=== PATIENT | female | born 1950 | race Caucasian/White ===

== ENCOUNTER → 2021-12-22 01:14 | Outpatient (CLI) | payer MEDICARE, MEDICAID, SELFPAY ==
--- NOTE | 2021-12-22 08:15 | DI.NM_ITS ---
Exam(s) NM BONE SCAN WHOLE BODY GRP EXAM: NM BONE SCAN WHOLE BODY GRP CLINICAL HISTORY: BREAST CANCER C50.911 METS TO BONE C50.919 C79.51 RESTAGING. TECHNIQUE: Injected Dose: 24.0 mCi Tc-99m MDP Delayed Images: 2-3 hours. COMPARISON: CT CT CHEST/ABD/PEL WO from 12/22/2021 FINDINGS: Today's CT scan was reviewed. There are multiple foci of increased uptake seen in the anterior aspect of multiple contiguous left r ibs including the anterior aspects of the left 2nd, 3rd, 4th, 5th, and 6th ribs. This arrangement of findings is usually consistent with trauma. There are no acute rib fractures evident on the CT scan . However, there is subtle focal sclerosis evident in these ribs at these levels on the CT scan. I suspect that this is consistent with healing fracture sites, more so than sclerotic metastatic diseas e (which would be quite unlikely with this type of arrangement/location of findings). There is no abnormal uptake seen in the opposite-right rib cage nor in the spinal column and there is no abnormal focal uptake seen in the skull. No abnormal uptake seen in the pelvis, hips, and long b ones with the exception of a small focus of increased uptake in the medial compartment of the right k nee consistent with degenerative change. IMPRESSION: 1. There are multiple foci of increased uptake seen in the anterior aspects of the left 2nd through 6 th ribs, inclusive, most probably posttraumatic and consistent with subacute healing fractures at the se levels. See discussion above concerning correlation with CT findings. DATA REPOSITORY:
--- NOTE | 2021-12-22 08:25 | DI.CT_ITS ---
Exam(s) CT CHEST/ABD/PEL WO EXAM: CT CHEST/ABD/PEL WO CLINICAL HISTORY: METASTATIC BREAST CA,C50.911,EVAL METS,RESTAGING EXAM. TECHNIQUE: Imaging Protocol: Axial computed tomography images with coronal and sagittal reformatted images were created and reviewed CONTRAST MATERIAL: Intravenous: none. Contingency protocol Oral: None COMPARISON: No exams were available for comparison FINDINGS: CHEST: Density in the medial aspect left breast noted within adjacent hyperdensity which is probably a biopsy marker clip. Also abnormal findings in the deep right breast surgical clips at this level n oted and spiculated density. Surgical clips are noted in the right axilla. No adenopathy in the axilla evident. Also no adenopat hy in the opposite-left axilla. LUNGS: There is a noncalcified 6 millimeter nodule in the lateral basal segment of the right lower lo be. There is also a tiny 2 millimeter noncalcified nodule in the right upper lobe. There are no oth er focal pulmonary findings and there are no pleural effusions. No significant focal findings in the trachea and mainstem bronchi.. MEDIASTINUM: No obvious hilar nor mediastinal adenopathy. Visualized thyroid unremarkable. CARDIAC: Heart size is normal. There is no pericardial effusion.No coronary artery calcification. D iameter of the ascending thoracic aorta is 3.8 cm. OSSEOUS: No lytic nor blastic osseous lesions identified. No fractures.. ABDOMEN: There is no ascites. There are no mesenteric masses. LIVER: There are no obvious focal hepatic lesions evident of this noninfused study. GALLBLADDER/BILIARY: No obvious gallbladder pathology. CBD is not dilated. PANCREAS: No evidence of obvious pancreatic mass nor dilatation of the pancreatic duct. SPLEEN: Spleen is not enlarged. No obvious intrasplenic lesions. ADRENALS: There are no significant adrenal masses. KIDNEYS: No calculi nor hydronephrosis. No obvious solid renal masses. No cysts evident. ABDOMINAL AORTA: Abdominal aorta is not enlarged. LYMPH NODES: There is no para-aortic adenopathy. There is no adenopathy around the aortic bifurcatio n nor along the iliac chains and there is no inguinal adenopathy. ABDOMINAL WALL/GI: No evidence of significant anterior abdominal wall nor inguinal hernia. No evidence of bowel obstruction. PELVIS: LYMPH NODES: There is no intrapelvic nor inguinal adenopathy. GI: No evidence of appendicitis.No evidence of significant sigmoid diverticular disease. URINARY BLADDER: No calculi nor obvious masses evident REPRODUCTIVE: Uterus is surgically absent. There is a well-defined slightly lobulated fluid collection above the vaginal cuff and behind the uri nary bladder which measures 3.4 cm AP by 2 cm wide by 1.7 cm craniocaudal. This does not contain gas bubbles nor surrounding fat streaking. It does not have the appearance of a bladder diverticulum. There is no free layering fluid in the pelvis. OSSEOUS: No significant osseous lesions. IMPRESSION: 1. There is a 6 millimeter noncalcified nodule in the right lower lobe and a 2 millimeter noncalcifie d nodule in the right upper lobe. No other lung nodules, infiltrates, pleural effusions, nor intrath oracic adenopathy evident. Close follow-up these findings is recommended, given the history here. A lso comparison to any prior outside CT scans would be helpful, if they exist. 2. The uterus is surgically absent. No obvious ovaries identified. However, there is a well-defined uniform fluid density collection above the vaginal cuff and behind the urinary bladder, measuring 34 x 20 x 17 millimeters. This does not contain gas nor surrounding streaking. Correlation with time since hysterectomy recommended. This will also require follow-up. 3. There is no obvious pathologic appearing adenopathy in the chest, abdomen, and pelvis and there ar e no lytic or sclerotic bone lesions identified. RADIATION DOSE DELIVERED: 1,205.81mGy.cm Total DLP DATA REPOSITORY: All CT scans at this facility are submitted to the National Radiology Data Registry (NRDR) Dose Index Registry (DIR) with the [employer] ([employer]). RADIATION OPTIMIZATION: All CT scans at this facility use at least one of these dose optimization te chniques: automated exposure control; mA and/or kV adjustment per patient size (includes targeted exa ms where dose is matched to clinical indication); or iterative reconstruction.
[2021-12-22 08:51] LABS: Abs Immature Grans 0.02 10^3/uL (0.0-0.06); Absolute Basophil Count 0.07 10^3/uL (0.0-0.2); Absolute Eosinophil Count 0.21 10^3/uL (0.0-0.7); Absolute Lymphocyte Count 1.38 10^3/uL (1.2-3.4); Absolute Monocyte Count 0.56 10^3/uL (0.1-0.8); Absolute Neutrophil Count 2.16 10^3/uL (1.2-6.7); Basophils % 1.6; Eosinophils % 4.8; HCT 36.5 % (36.0-46.0); HGB 12.8 g/dL (11.2-15.7); Immature Grans % 0.5; Lymphocytes % 31.4; MCH 34.6 pg (27.0-33.0); MCHC 35.1 % (32.0-36.0); MCV 99 fL (80-95); MPV 11.7 fL (8.0-11.0); Monocytes % 12.7; Platelet Count 171 10^3/uL (130-400); RDW 11.4 % (11.7-14.6); RDW-SD 41.3 fL
[2021-12-22 09:34] LABS: ALT 31 U/L (14-59); AST 27 U/L (15-37); Alkaline Phosphatase 131 U/L (46-116); Anion Gap 7.4 mmol/L (3-11); BUN 5 mg/dL (7-18); Bilirubin, Total 0.6 mg/dL (0.2-1.0); CO2 29.6 mmol/L (21.0-32.0); CREATININE 0.8 mg/dL (0.55-1.02); Calcium 9.4 mg/dL (8.5-10.1); Chloride 98 mmol/L (98-107); Glucose 127 mg/dL (74-106); Potassium 3.8 mmol/L (3.5-5.1); Sodium 135 mmol/L (136-145); Total Protein 7.1 g/dL (6.4-8.2)
== END ==
PROVIDERS: Nurse Practitioner Adult Health; Visit Provider Internal Medicine
DX: C50.911 Malignant neoplasm of unspecified site of right female breast (principal); Z79.811 Long term (current) use of aromatase inhibitors; C79.51 Secondary malignant neoplasm of bone; R74.8 Abnormal levels of other serum enzymes; R91.8 Other nonspecific abnormal finding of lung field; Z90.710 Acquired absence of both cervix and uterus
CPT/HCPCS: 71250; 78306; 80053; 74176; 85025

== ENCOUNTER 2023-05-28 11:58 | Outpatient (CLI) | payer MEDICARE, MEDICAID, SELFPAY ==
--- NOTE | 2023-05-28 12:00 | RT.EKG_ITS ---
APPROVED REPORT Exam: Resting ECG Reason for Exam: High risk medication use/ breast cancer Patient Location: O HR:57 bpm ECG Measurements Heart Rate 57 AXIS ME 195 P 69 QRSd 100 QRS 73 QT 491 T 52 QTc 478 Conclusion Sinus rhythm...normal P axis, V-rate 50- [address] elevation, inferior leads...ST >0.06mV, II III aVF
== END 2023-05-28 11:59 | disposition home or self-care (01) ==
PROVIDERS: Visit Provider Nurse Practitioner
DX: Z79.899 Other long term (current) drug therapy (principal)
CPT/HCPCS: 93005; 93010

== ENCOUNTER 2023-05-28 17:41 | Outpatient (CLI) | payer MEDICARE, MEDICAID, SELFPAY ==
[2023-05-28 12:40] LABS: Absolute Lymphocyte Count 1.38 10^3/uL (1.2-3.4); HCT 36.6 % (36.0-46.0); MCH 35.2 pg (27.0-33.0); MCHC 35.5 % (32.0-36.0); MCV 99 fL (80-95); Platelet Count 173 10^3/uL (130-400); RBC 3.69 10^6/uL (3.93-5.22); RDW 11.4 % (11.7-14.6); RDW-SD 41.1 fL; WBC 3.06 10^3/uL (4.4-10.8)
[2023-05-28 13:00] LABS: ALT 27 U/L (14-59); AST 19 U/L (15-37); Albumin 3.8 g/dL (3.4-5.0); Alkaline Phosphatase 116 U/L (46-116); Anion Gap 5.6 mmol/L (3-11); BUN 6 mg/dL (7-18); Bilirubin, Total 0.5 mg/dL (0.2-1.0); CO2 29.4 mmol/L (21.0-32.0); CREATININE 0.8 mg/dL (0.55-1.02); Calcium 9.8 mg/dL (8.5-10.1); Chloride 94 mmol/L (98-107); Estimated GFR 78.72 (mL/min/1.73m2); Glucose 109 mg/dL (74-106); Potassium 3.9 mmol/L (3.5-5.1); Sodium 129 mmol/L (136-145)
[2023-05-28 13:29] LABS: Absolute Basophil Count 0.06 10^3/uL (0.0-0.2); Absolute Monocyte Count 0.06 10^3/uL (0.1-0.8); Absolute Neutrophil Count 1.56 10^3/uL (1.2-6.7); Diff Comment Manual Differential; RBC Morphology Normal
[2023-05-30 11:12] LABS: Cancer Ag 15-3 14 U/mL (<30)
== END 2023-05-28 17:42 | disposition home or self-care (01) ==
LOC: LBO 17:42
PROVIDERS: Visit Provider Internal Medicine
DX: C50.911 Malignant neoplasm of unspecified site of right female breast (principal); C78.01 Secondary malignant neoplasm of right lung; Z79.811 Long term (current) use of aromatase inhibitors
CPT/HCPCS: 36415; 80053; 86304; 85025; 86300; 93005

== ENCOUNTER 2023-06-11 02:50 | Outpatient (CLI) | payer MEDICARE, MEDICAID, SELFPAY ==
[2023-06-11 13:42] LABS: Abs Immature Grans 0.01 10^3/uL (0.0-0.06); Absolute Basophil Count 0.03 10^3/uL (0.0-0.2); Absolute Eosinophil Count 0.01 10^3/uL (0.0-0.7); Absolute Lymphocyte Count 1.17 10^3/uL (1.2-3.4); Absolute Monocyte Count 0.64 10^3/uL (0.1-0.8); Absolute Neutrophil Count 0.85 10^3/uL (1.2-6.7); Basophils % 1.1; Eosinophils % 0.4; HCT 35.2 % (36.0-46.0); HGB 12.5 g/dL (11.2-15.7); Immature Grans % 0.4; Lymphocytes % 43.2; MCH 36.3 pg (27.0-33.0); MCHC 35.5 % (32.0-36.0); MCV 102 fL (80-95); Monocytes % 23.6; Neutrophils % 31.3; RBC 3.44 10^6/uL (3.93-5.22); RDW 13.3 % (11.7-14.6); WBC 2.71 10^3/uL (4.4-10.8)
[2023-06-11 14:00] LABS: ALT 25 U/L (14-59); AST 22 U/L (15-37); Albumin 4.1 g/dL (3.4-5.0); Alkaline Phosphatase 128 U/L (46-116); Anion Gap 12.8 mmol/L (3-11); BUN 5 mg/dL (7-18); Bilirubin, Total 0.3 mg/dL (0.2-1.0); CO2 26.2 mmol/L (21.0-32.0); CREATININE 0.7 mg/dL (0.55-1.02); Calcium 9.8 mg/dL (8.5-10.1); Chloride 95 mmol/L (98-107); Estimated GFR 92.41 (mL/min/1.73m2); Glucose 112 mg/dL (74-106); Potassium 3.4 mmol/L (3.5-5.1); Sodium 134 mmol/L (136-145); Total Protein 7.3 g/dL (6.4-8.2)
[2023-06-11 14:07] LABS: Diff Comment Agrees w/ Instrument; RBC Morphology Normal
[2023-06-14 10:53] LABS: Cancer Ag 15-3 17 U/mL (<30)
== END 2023-06-11 02:51 | disposition home or self-care (01) ==
LOC: LBO 02:50
PROVIDERS: Visit Provider Internal Medicine
DX: C50.911 Malignant neoplasm of unspecified site of right female breast (principal); C78.01 Secondary malignant neoplasm of right lung
CPT/HCPCS: 80053; 86304; 85025; 86300

== ENCOUNTER 2023-06-11 13:44 | Outpatient (CLI) | payer MEDICARE, MEDICAID, SELFPAY ==
--- NOTE | 2023-06-11 13:45 | RT.EKG_ITS ---
APPROVED REPORT Exam: Resting ECG Reason for Exam: HIGH RISK MEDICATION Patient Location: O HR:80 bpm ECG Measurements Heart Rate 80 AXIS AR 154 P 59 QRSd 96 QRS 62 QT 413 T 8 QTc 477 Conclusion Sinus rhythm...normal P axis, V-rate 50- 99 Baseline wander in lead(s) V6 Normal Electrocardiogram
== END 2023-06-11 13:45 | disposition home or self-care (01) ==
LOC: CARDOPNVT 13:44
PROVIDERS: Visit Provider Nurse Practitioner
DX: Z79.899 Other long term (current) drug therapy (principal)
CPT/HCPCS: 80053; 86304; 85025; 86300; 93005; 93010

== ENCOUNTER → 2023-12-12 13:37 | Outpatient (BNVA) | payer MEDICARE, MEDICAID, SELFPAY | PROVIDERS: Referring Provider Internal Medicine; Visit Provider Psychiatry & Neurology Neurology | DX: G45.9 Transient cerebral ischemic attack, unspecified (principal); G62.9 Polyneuropathy, unspecified; E53.8 Deficiency of other specified B group vitamins | CPT/HCPCS: 99215 ==

== ENCOUNTER 2024-02-18 12:04 | Outpatient (RCR) | payer MEDICARE, MEDICAID, SELFPAY ==
[2024-02-18 12:39] LABS: Abs Immature Grans 0.01 10^3/uL (0.0-0.06); Absolute Basophil Count 0.06 10^3/uL (0.0-0.2); Absolute Eosinophil Count 0.08 10^3/uL (0.0-0.7); Absolute Lymphocyte Count 1.28 10^3/uL (1.2-3.4); Absolute Monocyte Count 0.42 10^3/uL (0.1-0.8); Absolute Neutrophil Count 1.18 10^3/uL (1.2-6.7); Eosinophils % 2.6 %; HCT 35.4 % (36.0-46.0); Immature Grans % 0.3 %; Lymphocytes % 42.2 %; MCH 36.8 pg (27.0-33.0); MCHC 33.9 % (32.0-36.0); MCV 109 fL (80-95); MPV 11.1 fL (8.0-11.0); Monocytes % 13.9 %; Platelet Count 141 10^3/uL (130-400); RBC 3.26 10^6/uL (3.93-5.22); RDW 12.6 % (11.7-14.6); RDW-SD 50.5 fL; WBC 3.03 10^3/uL (4.4-10.8)
[2024-02-18] MEDS: Normal Saline Flush 10 ML SYR IVP (12:43)
[2024-02-18 12:57] LABS: ALT 33 U/L (14-59); AST 24 U/L (15-37); Albumin 3.6 g/dL (3.4-5.0); Alkaline Phosphatase 122 U/L (46-116); Anion Gap 7.6 mmol/L (3-11); BUN 11 mg/dL (7-18); Bilirubin, Total 0.33 mg/dL (0.2-1.0); CO2 29.4 mmol/L (21.0-32.0); CREATININE 0.5 mg/dL (0.55-1.02); Calcium 9.6 mg/dL (8.5-10.1); Chloride 106 mmol/L (98-107); Estimated GFR 99.59 (mL/min/1.73m2); Glucose 85 mg/dL (74-106); Potassium 4.1 mmol/L (3.5-5.1); Sodium 143 mmol/L (136-145); Total Protein 6.7 g/dL (6.4-8.2)
[2024-02-18 13:14] LABS: Diff Comment Diff Reviewed; RBC Morphology Normal
[2024-02-20 13:15] LABS: Cancer Ag 15-3 20 U/mL (<30)
== END 2024-03-11 23:59 | disposition home or self-care (01) ==
LOC: INF 12:04
PROVIDERS: Nurse Practitioner; Visit Provider Internal Medicine
DX: C78.00 Secondary malignant neoplasm of unspecified lung; Z45.2 Encounter for adjustment and management of vascular access device
CPT/HCPCS: 36591; 80053; 86300; 85025

== ENCOUNTER → 2024-02-27 09:43 | Outpatient (BNVA) | payer MEDICARE, MEDICAID, SELFPAY | PROVIDERS: PCP Family Medicine; Referring Provider Family Medicine; Visit Provider Psychiatry & Neurology Neurology | DX: E53.8 Deficiency of other specified B group vitamins (principal); G45.9 Transient cerebral ischemic attack, unspecified; G62.9 Polyneuropathy, unspecified | CPT/HCPCS: 99214 ==

== ENCOUNTER 2024-03-27 00:25 | Outpatient (CLI) | payer MEDICARE, MEDICAID, SELFPAY ==
--- NOTE | 2024-03-27 | DI.US_ITS ---
Exam(s) US UPPER EXTREMITY VENOUS RT EXAM: US UPPER EXTREMITY VENOUS RT CLINICAL HISTORY: Rt upper arm pain, M79.621, BREAST CA,? CLOT. TECHNIQUE: Ultrasound examination of the right upper extremity venous system(s) is performed using g rayscale, color-flow, and spectral Doppler analysis. COMPARISON: No exams were available for comparison FINDINGS: Right Deep Veins:The visualized internal jugular and subclavian veins are patent. The axillary and b rachial veins are patent and display normal color flow, augmentation and compressibility. Superficial Veins:The visualized cephalic, median cubital and basilic veins are patent and display no rmal color flow, augmentation and compressibility. Soft tissues: Unremarkable. IMPRESSION: No evidence of a right upper extremity deep venous thrombosis. DATA REPOSITORY:
== END 2024-03-27 00:45 ==
LOC: DI 00:30
PROVIDERS: PCP Family Medicine; Visit Provider Nurse Practitioner
DX: M79.621 Pain in right upper arm (principal)
CPT/HCPCS: 93971